=== PATIENT | female | born 1960 | race Two or more races ===

== ENCOUNTER 2018-08-31 15:20 | Emergency (ER) | payer OTHER ==
[~2018-08-31] VITALS: Ht 167.6 cm; Wt 65.8 kg
[2018-08-31 15:32] VITALS: BP 145/83
== END 2018-08-31 17:10 | disposition home or self-care (01) ==
LOC: ER 15:22
DX: S61.210A Laceration without foreign body of right index finger without damage to nail, initial encounter (principal); Z60.2 Problems related to living alone; W54.0XXA Bitten by dog, initial encounter; Y93.89 Activity, other specified; Y92.89 Other specified places as the place of occurrence of the external cause; Y99.8 Other external cause status
CPT/HCPCS: 73140-TC; A6403